=== PATIENT | female | born 2000 | race Caucasian/White ===

== ENCOUNTER 2020-07-09 14:06 | Outpatient (CLI) | payer OTHER ==
[2020-07-09 14:27] VITALS: BP 128/56; PULSE 82; RESP 16; TEMP 96.9
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
== END 2020-07-09 15:00 | disposition home or self-care (01) ==
LOC: FBPOP 14:06
PROVIDERS: ATTEND Obstetrics & Gynecology
DX: O26.93 Pregnancy related conditions, unspecified, third trimester (principal); Z3A.30 30 weeks gestation of pregnancy
CPT/HCPCS: 59025; G0463; 99213

== ENCOUNTER 2020-09-04 05:46 | Inpatient (IN) | payer OTHER ==
[2020-09-04] MEDS ORDERED: METHYLERGONOVINE 0.2 MG/ML 1 ML AMP IM PRN (06:02)
[2020-09-04] MEDS ORDERED: TERBUTALINE 1 MG/ML VIAL SQ PRN (06:02)
[2020-09-04] MEDS ORDERED: CARBOPROST TROMETHAMINE 250 MCG/ML 1 ML AMP IM PRN (06:02)
[2020-09-04] MEDS ORDERED: OXYTOCIN 10 UNIT/ML 1 ML VIAL IM PRN (06:02)
[2020-09-04] MEDS ORDERED: LIDOCAINE 0.5% (PF) 5 MG/ML (50 ML SDV) SQ PRN (06:02)
[2020-09-04] MEDS ORDERED: OXYTOCIN 30 UNITS/500 ML NS 30 UNIT in SALINE 1 500ML.BAG IV SCH (06:15)
[2020-09-04 06:16] LABS: Basophils # (A) 0.1 k/uL (0-0.2); Basophils % (A) 1 %; Eosinophils # (A) 0.7 k/uL (0-0.7); Eosinophils % (A) 5 %; HCT 39.6 % (34.0-46.0); Lymphocytes # (A) 3.9 k/uL (1.0-4.8); Lymphocytes % (A) 26 %; MCH 33.2 pg (25.0-35.0); MCHC 35.3 g/dL (31.0-37.0); MCV 94.2 fL (80.0-100.0); Mean Platelet Volume 7.5; Monocytes # (A) 0.6 k/uL (0-1.0); Monocytes % (A) 4 %; Neutrophils # (A) 9.5 k/uL (1.3-7.7); Neutrophils % (A) 64 %; Platelet Count 177 k/uL (150-450); RDW 12.4 % (11.5-15.5)
[2020-09-04] MEDS: LACTATED RINGERS 1,000 ML IV SCH ×3 (07:24→16:30)
--- NOTE | 2020-09-04 07:28 | P.HPOB ---
History of Present Illness H&P Date: 09/04/20 Chief Complaint: Here for elective induction of labor This is a 20-year-old white female 2 para 1001 EDC 09/11/2020 at 39 weeks gestation. Patient presents today for induction of labor with favorable multiparous cervix. Fetus is been active throughout the . She admits to mild irregular uterine contractions. She denies fluid leakage or vaginal bleeding. Past medical history is essentially unremarkable. Past surgical history appendectomy. Current medications vitamins daily, baby aspirin daily. ALLERGIES none known. Social history patient is single, father of the baby is involved. She is never been a tobacco smoker. She denies alcohol or drug use. Family history significant for alcoholism and cardiac disease. history rubella status nonimmune. Group B strep cultures negative. Blood type A+, VDRL testing, urine culture, hepatitis B surface antigen, HIV testing, Pap smear, gonorrhea and chlamydia cultures all negative. One-hour Glucola 95. On exam patient is 5 foot 5 inches, 224 pounds, blood pressure 121/89, pulse 98, patient is afebrile. The general physical exam is within normal limits. The cervix is 3 cm dilated, 70% effaced, -2 station, vertex presentation. Artificial amniorrhexis reveals clear fluid. heart rate is in the 140s with accelerations, consistent with reactive NST. Impression: 39 week intrauterine , here for elective induction of labor. All signs reassuring. Plan: Begin oxytocin augmentation, and titrated per hospital protocol. Continue close maternal and surveillance. Anticipate normal spontaneous vaginal delivery. Analgesic options reviewed with the patient in detail. Review of Systems Constitutional: Reports as per HPI Past Medical History Past Medical History: No Reported History History of Any Multi-Drug Resistant Organisms: None Reported Past Surgical History: Appendectomy Past Anesthesia/Blood Transfusion Reactions: No Reported Reaction Past Psychological History: No Psychological Hx Reported Smoking Status: Never smoker Past Alcohol Use History: None Reported Past Drug Use History: None Reported - Past Family History Mother Family Medical History: No Reported History Medications and Allergies Home Medications Medication Instructions Recorded Confirmed Type Aspirin [Adult Low Dose Aspirin EC] 81 mg PO DAILY 09/04/20 09/04/20 History Pnv No.95/Ferrous Fum/Folic AC 1 tablet PO DAILY 09/04/20 09/04/20 History [ Multivitamin Tablet] Allergies Allergy/AdvReac Type Severity Reaction Status Date / Time No Known Allergies Allergy Verified 09/04/20 06:01 Exam Vital Signs Temp Pulse Resp BP Pulse Ox 09/04/20 05:59 97.0 F L 98 16 121/89 96 Intake and Output 09/03/20 09/04/20 09/04/20 22:59 06:59 14:59 Other: # Voids 1 Weight 101.605 kg See dictation under HPI, please Results Result Diagrams: 09/04/20 06:00 Abnormal Lab Results - Last 24 Hours (Table) 09/04/20 Range/Units 06:00 WBC 15.0 H (3.8-10.6) k/uL Neutrophils # 9.5 H (1.3-7.7) k/uL Assessment and Plan Assessment: 39 week intrauterine , favorable multiparous cervix. Here for elective induction of labor. All signs reassuring. Plan: Continue close maternal and surveillance. Oxytocin per hospital protocol. Analgesic options reviewed. Anticipate normal spontaneous vaginal delivery. Time with Patient: Less than 30
[2020-09-04] MEDS ORDERED: ROPIVACAINE 5MG/ML 20ML VIAL ONE (09:15)
[2020-09-04] MEDS ORDERED: fentaNYL (PF) 50 MCG/ML 5 ML AMP ONE (09:15)
[2020-09-04] MEDS ORDERED: SODIUM CHLORIDE 0.9% 100 ML BAG ONE (09:15)
[2020-09-04] MEDS ORDERED: ROPIVACAINE 100 MG, fentaNYL (PF) 200 MCG in SODIUM CHLORIDE 0.9% 76 ML EPIDURAL ONE (12:23)
[2020-09-04] MEDS: OXYTOCIN 20 UNITS/1000 ML NS 1,000 ML IV SCH ×2 (12:50→17:19)
[2020-09-04] MEDS ORDERED: diphenhydrAMINE 50 MG/ML 1 ML VIAL IVP PRN ×2 (13:03)
[2020-09-04] MEDS ORDERED: HYDROCORTISONE 2.5% RECTAL CREAM 30 GM TUBE RECTAL PRN (13:03)
[2020-09-04] MEDS ORDERED: LANOLIN CREAM 5 GM TUBE TOPICAL PRN (13:03)
[2020-09-04] MEDS ORDERED: diphenhydrAMINE 50 MG CAP PO PRN (13:03)
[2020-09-04] MEDS ORDERED: diphenhydrAMINE 25 MG CAP PO PRN (13:03)
[2020-09-04] MEDS ORDERED: ACETAMINOPHEN TAB 325 MG TAB PO PRN (13:03)
[2020-09-04] MEDS ORDERED: SIMETHICONE 80 MG CHEWABLE PO PRN (13:03)
[2020-09-04] MEDS ORDERED: ZOLPIDEM 5 MG TAB PO PRN (13:03)
[2020-09-04] MEDS ORDERED: BENZOCAINE/MENTHOL SPRAY 1 GM/SPRAY AEROSOL TOPICAL PRN (13:03)
--- NOTE | 2020-09-04 13:03 | P.PROBDLV ---
Vaginal Delivery Note - . Vaginal Delivery Note: This is a 20-year-old white female 2 para 1001 EDC 09/11/2020 at 39 weeks gestation. Patient presented for induction with favorable multiparous cervix. unremarkable, group B strep cultures negative, blood type B positive, rubella status nonimmune. Please see dictated history and physical for details. Artificial amniorrhexis revealed clear fluid. Oxytocin was started and titrated per hospital protocol. Epidural was placed per her request with excellent analgesic relief. heart tones were reassuring throughout the first and second stages of labor. Patient became completely dilated at 1231 hours and began the second stage of labor at that time. Perineal body was prepped and draped in usual sterile fashion. With excellent maternal expulsive efforts the head delivered occiput anterior and restituted accordingly. The was no nuchal cord noted. The right or anterior shoulder was gently delivered from underneath the pubic symphysis at which time the oropharynx, nasopharynx, and external nares were all bulb suctioned on the perin eal body. Patient was officially delivered of a liveborn female at 1243 hours. Umbilical cord was doubly clamped and ligated, she was handed to waiting nurses for evaluation where scores of 9 and 9 at one and 5 minutes respectively were given. The placenta delivered spontaneously, it was inspected and noted to be intact with trivascular cord at 1250 hours. Perineal body was then redraped. Careful inspection of the cervix, vagina, perineum, periurethral, and perirectal areas revealed no lacerations and no defects. Uterus is massaged, firm and midline and symmetric. Total estimated blood loss 200 mL's. All sponge needle and enhancement counts are correct at the end of the procedure. Patient and her family are allowed to begin the bonding experience in the LDR.
[2020-09-04] MEDS: IBUPROFEN 600 MG TAB PO PRN (18:51)
[2020-09-04] MEDS: SENNOSIDES-DOCUSATE SODIUM 1 EACH TAB PO SCH (19:43)
[2020-09-04] MEDS ORDERED: MEASLES-MUMPS-RUBELLA VACC/PF 12,500 UNIT/0.5 ML VIAL SQ ONE (21:19)
[2020-09-05 06:14] LABS: Basophils % (A) 0 %; Eosinophils # (A) 0.4 k/uL (0-0.7); Eosinophils % (A) 3 %; HCT 28.9 % (34.0-46.0); Lymphocytes # (A) 3.3 k/uL (1.0-4.8); Lymphocytes % (A) 25 %; MCH 34.4 pg (25.0-35.0); MCV 95.7 fL (80.0-100.0); Mean Platelet Volume 7.4; Monocytes # (A) 0.7 k/uL (0-1.0); Monocytes % (A) 5 %; Neutrophils # (A) 8.3 k/uL (1.3-7.7); Neutrophils % (A) 64 %; Platelet Count 137 k/uL (150-450); RBC 3.02 m/uL (3.80-5.40); RDW 12.8 % (11.5-15.5); WBC 12.9 k/uL (3.8-10.6)
[2020-09-05 06:15] LABS: HGB 10.4 gm/dL (11.4-16.0)
[2020-09-05] MEDS: SENNOSIDES-DOCUSATE SODIUM 1 EACH TAB PO SCH ×2 (07:27→19:52)
[2020-09-05] MEDS: IBUPROFEN 600 MG TAB PO PRN ×2 (07:27→19:51)
--- NOTE | 2020-09-05 08:02 | P.DS ---
Providers Date of admission: 09/04/20 05:46 Expected date of discharge: 09/05/20 Attending physician: Debbie Hurley Primary care physician: Stated None Hospital Course: This is a 20-year-old white female 2 para 1001 EDC 09/11/2020 at 39 weeks gestation. Patient presented for induction with favorable multiparous cervix at term. remarkable for rubella status nonimmune, blood type A+, group B strep cultures negative. Please see dictated history and physical for details. Artificial amniorrhexis revealed clear fluid. Epidural was placed per her request. Patient went on to deliver vaginally a liveborn female infant with scores of 9 and 9 at one and 5 minutes respectively. Infant weighed 3515 g or 7 lbs. 12 oz. Estimated blood loss 200 mL at the time of delivery. No perineal lacerations were encountered. Please see dictated delivery note for details. Immediately rather large blood clots were passed vaginally. For this reason Methergine was given IM 1 with excellent results. Bleeding resolved to normal quantity. The remainder of her care was unremarkable. This morning patient is voiding, ambulating, passing flatus without difficulty. Repeat hemoglobin this morning 10.4. Vital signs remain normal. Patient is asymptomatic. She is judged to be in excellent condition for discharge home. She will follow-up with me in the office in 6 weeks. We have briefly reviewed options for contraception. She is reminded no intercourse, tampons or douching. She will use [id number] Advil or Aleve, or Motrin as needed for pain. She will call with any fevers shakes or chills foul smelling or copious lochia, with the passage of large blood clots, or indeed with any difficulties or complaints. Patient Condition at Discharge: Good Plan - Discharge Summary Discharge Rx Participant: No New Discharge Prescriptions: No Action Pnv No.95/Ferrous Fum/Folic AC [ Multivitamin Tablet] 1 tablet PO DAILY Aspirin [Adult Low Dose Aspirin EC] 81 mg PO DAILY Discharge Medication List Aspirin [Adult Low Dose Aspirin EC] 81 mg PO DAILY 09/04/20 [History] Pnv No.95/Ferrous Fum/Folic AC [ Multivitamin Tablet] 1 tablet PO DAILY 09/04/20 [History] Follow up Appointment(s)/Referral(s): Debbie Hurley MD [STAFF PHYSICIAN] - 6 Weeks Discharge Disposition: HOME SELF-CARE
[2020-09-06] MEDS: IBUPROFEN 600 MG TAB PO PRN (04:56)
[2020-09-06 11:04] VITALS: BP 117/75; PULSE 77; RESP 14; TEMP 98.3
[2020-09-06] MEDS: SENNOSIDES-DOCUSATE SODIUM 1 EACH TAB PO SCH (11:21)
== END 2020-09-06 15:17 | disposition home or self-care (01) | DRG 807 ==
LOC: 4FBP 05:46
PROVIDERS: ADMIT Obstetrics & Gynecology; ATTEND Obstetrics & Gynecology
PROC: 10E0XZZ Delivery of Products of Conception, External Approach (ICD-10-PCS; principal; 2020-09-04)
PROC: 10907ZC Drainage of Amniotic Fluid, Therapeutic from Products of Conception, Via Natural or Artificial Opening (ICD-10-PCS; 2020-09-04)
PROC: 3E033VJ Introduction of Other Hormone into Peripheral Vein, Percutaneous Approach (ICD-10-PCS; 2020-09-04)
PROC: 3E0R3BZ Introduction of Anesthetic Agent into Spinal Canal, Percutaneous Approach (ICD-10-PCS; 2020-09-04)
DX: O80 Encounter for full-term uncomplicated delivery (principal); Z37.0 Single live birth; Z3A.39 39 weeks gestation of pregnancy; Z90.49 Acquired absence of other specified parts of digestive tract; Z79.82 Long term (current) use of aspirin; Z79.899 Other long term (current) drug therapy
CPT/HCPCS: 85025; 86850; 86900; 86901; 90707

== ENCOUNTER 2021-04-24 10:20 | Emergency (ER) | payer OTHER ==
[2021-04-24 10:29] VITALS: RESP 20; TEMP 98.3
[2021-04-24 11:13] LABS: Basophils % (A) 1 %; Eosinophils # (A) 0.3 k/uL (0-0.7); Eosinophils % (A) 4 %; HGB 13.8 gm/dL (11.4-16.0); Lymphocytes # (A) 2.5 k/uL (1.0-4.8); Lymphocytes % (A) 40 %; MCH 31.4 pg (25.0-35.0); MCHC 33.7 g/dL (31.0-37.0); MCV 93.3 fL (80.0-100.0); Mean Platelet Volume 6.4; Monocytes # (A) 0.3 k/uL (0-1.0); Monocytes % (A) 5 %; Neutrophils # (A) 2.9 k/uL (1.3-7.7); Neutrophils % (A) 47 %; Platelet Count 232 k/uL (150-450); RBC 4.39 m/uL (3.80-5.40); RDW 13.2 % (11.5-15.5); WBC 6.2 k/uL (3.8-10.6)
--- NOTE | 2021-04-24 11:14 | ED ---
Female Urogenital HPI - General Chief complaint: Vaginal Bleeding Stated complaint: Vaginal bleeding, 8 weeks Time Seen by Provider: 04/24/21 10:37 Source: patient Mode of arrival: ambulatory Limitations: no limitations - History of Present Illness Initial comments: Patient is a 21-year-old female presenting to the emergency Department with com plaints of vaginal spotting that started today while at work. Patient is approximately 8 weeks , , LATHE SCALPER OPERATOR is Dr. Hurley. Patient states she was at work, went to use the restroom and when she wiped she noticed some blood. She states she's been spotting for the past 2-3 hours. Nothing heavy, she is not needing to her pad. She denies any abdominal pain, some mild nausea which is normal for her. No vomiting, no diarrhea, no recent fevers or chills. Patient denies any chest pain or shortness of breath. She has no further complaints at this time. - Related Data Home Medications Medication Instructions Recorded Confirmed Aspirin [Adult Low Dose Aspirin EC] 81 mg PO DAILY 09/04/20 09/04/20 Pnv No.95/Ferrous Fum/Folic AC 1 tablet PO DAILY 09/04/20 09/04/20 [ Multivitamin Tablet] Allergies Allergy/AdvReac Type Severity Reaction Status Date / Time No Known Allergies Allergy Verified 04/24/21 10:29 Review of Systems ROS Statement: Those systems with pertinent positive or pertinent negative responses have been documented in the HPI. ROS Other: All systems not noted in ROS Statement are negative. Past Medical History Past Medical History: No Reported History History of Any Multi-Drug Resistant Organisms: None Reported Past Surgical History: Appendectomy Past Anesthesia/Blood Transfusion Reactions: No Reported Reaction Past Psychological History: No Psychological Hx Reported Smoking Status: Never smoker Past Alcohol Use History: None Reported Past Drug Use History: None Reported - Past Family History Mother Family Medical History: No Reported History General Exam - General Exam Comments Initial Comments: GENERAL: Patient is well-developed and well-nourished. Patient is nontoxic and in no acute distress. HEAD: Atraumatic, normocephalic. EYES: Pupils equal round and reactive to light, extraocular movements intact, sclera anicteric, conjunctiva are normal. Eyelids were unremarkable. ENT: Nares patent, oropharynx clear without exudates. Moist mucous membranes. NECK: Normal range of motion, supple without lymphadenopathy or JVD. LUNGS: Unlabored respirations. Breath sounds clear to auscultation bilaterally and equal. No wheezes rales or rhonchi. HEART: Regular rate and rhythm without murmurs, rubs or gallops. ABDOMEN: Soft, nontender, normoactive bowel sounds. No guarding, no rebound. No masses appreciated. : Deferred MUSCULOSKELETAL: Normal extremities with adequate strength and normal range of motion, no pitting or edema. No clubbing or cyanosis. NEUROLOGICAL: Patient is alert and oriented x 3. SKIN: Warm, Dry, normal turgor, no rashes or lesions noted. Limitations: no limitations Course Vital Signs 04/24/21 04/24/21 10:27 12:30 Temperature 98.3 F Pulse Rate 88 76 Respiratory 20 20 Rate Blood Pressure 123/76 103/60 O2 Sat by Pulse 99 100 Oximetry Medical Decision Making - Medical Decision Making Patient is a 21-year-old female, currently 8 weeks , presenting for spotting since this morning. She is , LATHE SCALPER OPERATOR is Dr. Hurley. She is having no abdominal pain, no vomiting. Vital signs are stable. Labs are all within normal limits, beta hCG is around 6900. Blood type is A+. Ultrasound today showing no heart tones, findings consistent with demise. I did discuss these findings with the patient. She did have an ultrasound last week at her LATHE SCALPER OPERATOR's office for date confirmation and she did have heart tones then. I recommended following up with her LATHE SCALPER OPERATOR. I will give her a lab slip to recheck hCG levels and 48 hours. She stable for discharge. Return parameters were discussed with her and she verbalized understanding. Case discussed with Dr. Lord. - Lab Data Result diagrams: 04/24/21 11:00 04/24/21 11:00 Lab Results 04/24/21 04/24/21 04/24/21 Range/Units 10:50 11:00 11:00 WBC 6.2 (3.8-10.6) k/uL RBC 4.39 (3.80-5.40) m/uL Hgb 13.8 (11.4-16.0) gm/dL Hct 41.0 (34.0-46.0) % MCV 93.3 (80.0-100.0) fL MCH 31.4 (25.0-35.0) pg MCHC 33.7 (31.0-37.0) g/dL RDW 13.2 (11.5-15.5) % Plt Count 232 (150-450) k/uL MPV 6.4 Neutrophils % 47 % Lymphocytes % 40 % Monocytes % 5 % Eosinophils % 4 % Basophils % 1 % Neutrophils # 2.9 (1.3-7.7) k/uL Lymphocytes # 2.5 (1.0-4.8) k/uL Monocytes # 0.3 (0-1.0) k/uL Eosinophils # 0.3 (0-0.7) k/uL Basophils # 0.0 (0-0.2) k/uL Sodium (137-145) mmol/L Potassium (3.5-5.1) mmol/L Chloride (98-107) mmol/L Carbon Dioxide (22-30) mmol/L Anion Gap mmol/L BUN (7-17) mg/dL Creatinine (0.52-1.04) mg/dL Est GFR (CKD-EPI)AfAm (>60 ml/min/1.73 sqM) Est GFR (CKD-EPI)NonAf (>60 ml/min/1.73 sqM) Glucose (74-99) mg/dL Calcium (8.4-10.2) mg/dL Total Bilirubin (0.2-1.3) mg/dL AST (14-36) U/L ALT (4-34) U/L Alkaline Phosphatase (38-126) U/L Total Protein (6.3-8.2) g/dL Albumin (3.5-5.0) g/dL HCG, Quant mIU/mL Urine Color Light Yellow Urine Appearance Clear (Clear) Urine pH 7.0 (5.0-8.0) Ur Specific [place] 1.004 (1.001-1.035) Urine Protein Negative (Negative) Urine Glucose (UA) Negative (Negative) Urine Ketones Negative (Negative) Urine Blood Large H (Negative) Urine Nitrite Negative (Negative) Urine Bilirubin Negative (Negative) Urine Urobilinogen <2.0 (<2.0) mg/dL Ur Leukocyte Esterase Small H (Negative) Urine RBC 1 (0-5) /hpf Urine WBC 2 (0-5) /hpf Ur Squamous Epith Cells 1 (0-4) /hpf Blood Type A Positive Blood Type Recheck A Pos Bld Type Recheck Status No 04/24/21 Range/Units 11:00 WBC (3.8-10.6) k/uL RBC (3.80-5.40) m/uL Hgb (11.4-16.0) gm/dL Hct (34.0-46.0) % MCV (80.0-100.0) fL MCH (25.0-35.0) pg MCHC (31.0-37.0) g/dL RDW (11.5-15.5) % Plt Count (150-450) k/uL MPV Neutrophils % % Lymphocytes % % Monocytes % % Eosinophils % % Basophils % % Neutrophils # (1.3-7.7) k/uL Lymphocytes # (1.0-4.8) k/uL Monocytes # (0-1.0) k/uL Eosinophils # (0-0.7) k/uL Basophils # (0-0.2) k/uL Sodium 139 (137-145) mmol/L Potassium 3.8 (3.5-5.1) mmol/L Chloride 104 (98-107) mmol/L Carbon Dioxide 26 (22-30) mmol/L Anion Gap 9 mmol/L BUN 9 (7-17) mg/dL Creatinine 0.53 (0.52-1.04) mg/dL Est GFR (CKD-EPI)AfAm >90 (>60 ml/min/1.73 sqM) Est GFR (CKD-EPI)NonAf >90 (>60 ml/min/1.73 sqM) Glucose 93 (74-99) mg/dL Calcium 9.8 (8.4-10.2) mg/dL Total Bilirubin 0.3 (0.2-1.3) mg/dL AST 30 (14-36) U/L ALT 22 (4-34) U/L Alkaline Phosphatase 103 (38-126) U/L Total Protein 7.3 (6.3-8.2) g/dL Albumin 4.5 (3.5-5.0) g/dL HCG, Quant 6923.3 mIU/mL Urine Color Urine Appearance (Clear) Urine pH (5.0-8.0) Ur Specific [place] (1.001-1.035) Urine Protein (Negative) Urine Glucose (UA) (Negative) Urine Ketones (Negative) Urine Blood (Negative) Urine Nitrite (Negative) Urine Bilirubin (Negative) Urine Urobilinogen (<2.0) mg/dL Ur Leukocyte Esterase (Negative) Urine RBC (0-5) /hpf Urine WBC (0-5) /hpf Ur Squamous Epith Cells (0-4) /hpf Blood Type Blood Type Recheck Bld Type Recheck Status Disposition Clinical Impression: Threatened , demise Disposition: HOME SELF-CARE Condition: Stable Instructions (If sedation given, give patient instructions): Threatened Miscarriage (ED) Additional Instructions: Please return to the Emergency Department if symptoms worsen or any other concerns. Please follow up with your LATHE SCALPER OPERATOR as discussed. Recheck beta hCG levels in 48 hours. Is patient prescribed a controlled substance at d/c from ED?: No Referrals: Thanh Charles MD [Primary Care Provider] - 1-2 days Debbie Hurley MD [Family Provider] - 1-2 days Time of Disposition: 13:09
[2021-04-24 11:20] LABS: Appearance,Urine Clear (Clear); Bilirubin,Urine Negative (Negative); Blood,Urine Large (Negative); Color,Urine Light Yellow; Glucose,Urine (UA) Negative (Negative); Ketones,Urine Negative (Negative); Leukocyte Esterase,Urine Small (Negative); Nitrite,Urine Negative (Negative); Protein,Urine Negative (Negative); RBC,Urine 1 /hpf (0-5); Specific Gravity,Urine 1.004 (1.001-1.035); Squamous Epithelial Cell,Urine 1 /hpf (0-4); Urobilinogen,Urine <2.0 mg/dL (<2.0); WBC,Urine 2 /hpf (0-5)
[2021-04-24 11:22] LABS: ALT 22 U/L (4-34); AST 30 U/L (14-36); African American GFR (CKD) >90 (>60 ml/min/1.73 sqM); Albumin 4.5 g/dL (3.5-5.0); Alkaline Phosphatase 103 U/L (38-126); Anion Gap 9 mmol/L; Blood Urea Nitrogen 9 mg/dL (7-17); Calcium 9.8 mg/dL (8.4-10.2); Carbon Dioxide 26 mmol/L (22-30); Chloride 104 mmol/L (98-107); Glucose 93 mg/dL (74-99); Non-African American GFR(CKD) >90 (>60 ml/min/1.73 sqM); Potassium 3.8 mmol/L (3.5-5.1); Sodium 139 mmol/L (137-145); Total Bilirubin 0.3 mg/dL (0.2-1.3); Total Protein 7.3 g/dL (6.3-8.2)
[2021-04-24 11:39] LABS: HCG,Quantitative Serum 6923.3 mIU/mL
[2021-04-24 12:34] VITALS: BP 103/60; PULSE 76
--- NOTE | 2021-04-24 12:43 | US ---
EXAMINATION TYPE: Transabdominal DATE OF EXAM: 04/24/2021 11:53 AM COMPARISON: NONE CLINICAL HISTORY: spotting, 8wks. spotting EXAM PERFORMED: Transvaginal (TV) and Transabdominal (TA) EXAM MEASUREMENTS: GESTATIONAL AGE / DATING Physician Established: (7 weeks/5 days) EDC: 12/06/2021 Dates by LMP: (7 weeks/5 days) EDC: 12/06/2021 Dates by First Scan: No previous this is first scan MATERNAL ANATOMY Uterus: 7.8 x 3.5 x 5.9 cm Right Ovary: obscured by bowel gas. Left Ovary: 3.7 x 2.0 x 1.7 cm Post CDS / Adnexa: wnl Presence of free fluid: no Presence of corpus luteal cyst: no Presence of subchorionic bleed: no GESTATION / SURVEY CRL: .98 cm (7 weeks/0 days) IUP: Demise Beta HcG (if available): Not available at this time No heart tones seen. IMPRESSION: Findings consistent with demise
== END 2021-04-24 13:25 | disposition home or self-care (01) ==
LOC: EC 10:20
DX: O20.0 Threatened abortion (principal); Z79.82 Long term (current) use of aspirin; Z3A.08 8 weeks gestation of pregnancy
CPT/HCPCS: 36415; 76801; 76817; 80053; 81001; 84702; 85025; 86900; 86901; 99284

== ENCOUNTER → 2021-04-27 | Outpatient (CLI) | payer OTHER | END | disposition home or self-care (01) | LOC: LABWHC1 15:54 | PROVIDERS: ATTEND Specialist/Technologist Athletic Trainer | DX: O20.0 Threatened abortion (principal); Z3A.00 Weeks of gestation of pregnancy not specified | CPT/HCPCS: 36415; 84702 ==

== ENCOUNTER → 2021-05-05 | Outpatient (CLI) | payer OTHER | END | disposition home or self-care (01) | LOC: LABWHC1 15:03 | PROVIDERS: ATTEND Obstetrics & Gynecology | DX: O03.9 Complete or unspecified spontaneous abortion without complication (principal); Z3A.00 Weeks of gestation of pregnancy not specified | CPT/HCPCS: 36415; 84702 ==

== ENCOUNTER → 2021-05-12 | Outpatient (CLI) | payer OTHER | END | disposition home or self-care (01) | LOC: LABWHC1 16:09 | PROVIDERS: ATTEND Obstetrics & Gynecology | DX: O02.1 Missed abortion (principal); Z3A.00 Weeks of gestation of pregnancy not specified | CPT/HCPCS: 36415; 84702 ==

== ENCOUNTER 2021-08-20 06:34 | Emergency (ER) | payer OTHER ==
[2021-08-20 06:39] VITALS: TEMP 98.6
--- NOTE | 2021-08-20 07:00 | ED ---
Female Urogenital HPI - General Chief complaint: Vaginal Bleeding Stated complaint: Spotting, 6wks preg Time Seen by Provider: 08/20/21 06:38 Source: patient, family, RN notes reviewed Mode of arrival: ambulatory Limitations: no limitations - History of Present Illness Initial comments: This a 21-year-old female sent emergency from chief complaint of spotting early . Patient is A1 currently 16 weeks . Patient states she found out 3 weeks ago she was she is scheduled plan with her PAYMENT ANALYST Dr. Hurley. Patient has a positive blood type. Patient denies any pain, cramping, dysuria, urinary frequency. No fevers or chills no other associated complaints. - Related Data Home Medications Medication Instructions Recorded Confirmed Pnv No.95/Ferrous Fum/Folic AC 1 tab PO HS 09/04/20 08/20/21 [ Multivitamin Tablet] Previous Rx's Medication Instructions Recorded Cephalexin [Keflex] 500 mg PO Q8HR #21 cap 08/20/21 Allergies Allergy/AdvReac Type Severity Reaction Status Date / Time No Known Allergies Allergy Verified 08/20/21 08:24 Review of Systems ROS Statement: Those systems with pertinent positive or pertinent negative responses have been documented in the HPI. ROS Other: All systems not noted in ROS Statement are negative. Past Medical History Past Medical History: No Reported History History of Any Multi-Drug Resistant Organisms: None Reported Past Surgical History: Appendectomy Past Anesthesia/Blood Transfusion Reactions: No Reported Reaction Past Psychological History: No Psychological Hx Reported Smoking Status: Never smoker Past Alcohol Use History: None Reported Past Drug Use History: None Reported - Past Family History Mother Family Medical History: No Reported History General Exam Limitations: no limitations General appearance: alert, in no apparent distress Head exam: Present: atraumatic, normocephalic, normal inspection Eye exam: Present: normal appearance, PERRL, EOMI. Absent: scleral icterus, conjunctival injection, periorbital swelling ENT exam: Present: normal exam, mucous membranes moist Neck exam: Present: normal inspection, full ROM. Absent: tenderness, meningismus, lymphadenopathy Respiratory exam: Present: normal lung sounds bilaterally. Absent: respiratory distress, wheezes, rales, rhonchi, stridor Cardiovascular Exam: Present: regular rate, normal rhythm, normal heart sounds. Absent: systolic murmur, diastolic murmur, rubs, gallop, clicks GI/Abdominal exam: Present: soft, normal bowel sounds. Absent: distended, tenderness, guarding, rebound, rigid Course Vital Signs 08/20/21 06:35 Temperature 98.6 F Pulse Rate 86 Respiratory 22 Rate Blood Pressure 118/74 O2 Sat by Pulse 100 Oximetry Medical Decision Making - Medical Decision Making Patient presented for spotting early . Patient is a positive blood type does not require RhoGAM. Patient's beta Quant is just over 600. Ultrasound was unremarkable patient will be discharged in stable condition she would she for urinary tract infection return parameters discussed. - Lab Data Lab Results 08/20/21 08/20/21 Range/Units 07:09 07:09 HCG, Quant 632.1 mIU/mL Urine Color Light Yellow Urine Appearance Cloudy H (Clear) Urine pH 6.0 (5.0-8.0) Ur Specific [place] 1.007 (1.001-1.035) Urine Protein Negative (Negative) Urine Glucose (UA) Negative (Negative) Urine Ketones Negative (Negative) Urine Blood Large H (Negative) Urine Nitrite Negative (Negative) Urine Bilirubin Negative (Negative) Urine Urobilinogen <2.0 (<2.0) mg/dL Ur Leukocyte Esterase Large H (Negative) Urine RBC 19 H (0-5) /hpf Urine WBC 14 H (0-5) /hpf Ur Squamous Epith Cells 3 (0-4) /hpf Disposition Clinical Impression: Threatened miscarriage in early , UTI (urinary tract infection) Disposition: HOME SELF-CARE Condition: Stable Instructions (If sedation given, give patient instructions): Urinary Tract Infection in Women (ED) Additional Instructions: Please return to the Emergency Department if symptoms worsen or any other concerns. Prescriptions: Cephalexin [Keflex] 500 mg PO Q8HR #21 cap Is patient prescribed a controlled substance at d/c from ED?: No Referrals: Thanh Charles MD [Primary Care Provider] - 1-2 days Time of Disposition: 09:34
[2021-08-20 07:56] LABS: Appearance,Urine Cloudy (Clear); Bilirubin,Urine Negative (Negative); Blood,Urine Large (Negative); Color,Urine Light Yellow; Glucose,Urine (UA) Negative (Negative); Ketones,Urine Negative (Negative); Leukocyte Esterase,Urine Large (Negative); Nitrite,Urine Negative (Negative); Protein,Urine Negative (Negative); RBC,Urine 19 /hpf (0-5); Specific Gravity,Urine 1.007 (1.001-1.035); Squamous Epithelial Cell,Urine 3 /hpf (0-4); Urobilinogen,Urine <2.0 mg/dL (<2.0); WBC,Urine 14 /hpf (0-5)
--- NOTE | 2021-08-20 09:31 | US ---
EXAMINATION TYPE: Transabdominal DATE OF EXAM: 08/20/2021 8:35 AM COMPARISON: 04/24/2021 CLINICAL HISTORY: bleeding. Vaginal spotting for the past day G 4 P 2 EXAM PERFORMED: Transvaginal (TV) EXAM MEASUREMENTS: GESTATIONAL AGE / DATING Dates by LMP: 07/07/21 (6 weeks/2 days) EDC: 04/13/21 Dates by Current Scan for: Unable to date by today's study MATERNAL ANATOMY Uterus: 7.9 x 5.3 x 4.0 cm Right Ovary: 2.6 x 2.2 x 2.2cm Left Ovary: 2.6 x 1.8 x 1.8 Post CDS / Adnexa: Wnl Presence of free fluid: Small amount of fluid seen in posterior cul de sac Presence of corpus luteal cyst: Rt corpus luteal cyst 1.5 x 1.2 0.8 cm Presence of subchorionic bleed: no GESTATION / SURVEY IUP: No IUP seen at this time, anechoic area seen in endo, possible early Date of LMP: 07/07/21 Beta HcG (if available): 632.1MIU/mL IMPRESSION: There is a small anechoic area seen in the endometrium with no definite pole. Small amount of f ree fluid in the pelvis. Differential diagnosis includes normal too early to detect, missed , or ectopic . Correlate clinically.
[2021-08-20 09:50] VITALS: BP 118/84; PULSE 84; RESP 18
== END 2021-08-20 09:56 | disposition home or self-care (01) ==
LOC: EC 06:34
DX: O20.0 Threatened abortion (principal); O23.41 Unspecified infection of urinary tract in pregnancy, first trimester; N39.0 Urinary tract infection, site not specified; Z3A.00 Weeks of gestation of pregnancy not specified; Z90.49 Acquired absence of other specified parts of digestive tract
CPT/HCPCS: 36415; 76801; 76817; 81001; 84702; 87086; 99284

== ENCOUNTER → 2021-08-22 | Outpatient (CLI) | payer OTHER | END | disposition home or self-care (01) | LOC: LABWHC1 10:28 | PROVIDERS: ATTEND Physician Assistant | DX: O20.0 Threatened abortion (principal); Z3A.00 Weeks of gestation of pregnancy not specified | CPT/HCPCS: 36415; 84702 ==

== ENCOUNTER → 2021-09-04 | Outpatient (CLI) | payer OTHER | END | disposition home or self-care (01) | LOC: LABWHC1 10:18 | PROVIDERS: ATTEND Obstetrics & Gynecology | DX: O02.1 Missed abortion (principal); Z3A.00 Weeks of gestation of pregnancy not specified | CPT/HCPCS: 36415; 84702 ==

== ENCOUNTER 2023-09-15 05:55 | Inpatient (IN) | payer MEDICARE, OTHER ==
[2023-09-15] MEDS ORDERED: METHYLERGONOVINE 0.2 MG/ML 1 ML AMP IM PRN (06:11)
[2023-09-15] MEDS ORDERED: miSOPROStoL 200 MCG TAB PO PRN (06:11)
[2023-09-15] MEDS ORDERED: TERBUTALINE 1 MG/ML VIAL SQ PRN (06:11)
[2023-09-15] MEDS ORDERED: OXYTOCIN 10 UNIT/ML 1 ML VIAL IM PRN (06:11)
[2023-09-15] MEDS ORDERED: CARBOPROST TROMETHAMINE 250 MCG/ML 1 ML AMP IM PRN (06:11)
[2023-09-15] MEDS ORDERED: LIDOCAINE 0.5% (PF) 5 MG/ML (50 ML SDV) SQ PRN (06:11)
[2023-09-15] MEDS ORDERED: TRANEXAMIC 1,000 MG/100ML-NACL 1,000 MG in EMPTY BAG 1 BAG IV PRN (06:11)
[2023-09-15] MEDS ORDERED: OXYTOCIN 30 UNITS/500 ML NS 30 UNIT in SALINE 1 500ML.BAG IV SCH ×2 (06:15→14:30)
[2023-09-15] MEDS: LACTATED RINGERS 1,000 ML IV SCH ×2 (06:36→09:55)
[2023-09-15 06:45] LABS: Basophils % (A) 0 %; Eosinophils # (A) 0.4 k/uL (0-0.7); Eosinophils % (A) 4 %; HCT 37.3 % (34.0-46.0); Lymphocytes # (A) 2.4 k/uL (1.0-4.8); Lymphocytes % (A) 24 %; MCH 32.8 pg (25.0-35.0); MCHC 34.8 g/dL (31.0-37.0); MCV 94.2 fL (80.0-100.0); Mean Platelet Volume 7.5; Monocytes # (A) 0.5 k/uL (0-1.0); Monocytes % (A) 5 %; Neutrophils # (A) 6.6 k/uL (1.3-7.7); Neutrophils % (A) 66 %; Platelet Count 177 k/uL (150-450); RBC 3.96 m/uL (3.80-5.40); RDW 13.1 % (11.5-15.5); WBC 10.1 k/uL (3.8-10.6)
--- NOTE | 2023-09-15 09:21 | P.HPOB ---
History of Present Illness H&P Date: 09/15/23 Chief Complaint: 39-0/7 weeks, elective induction The patient is a 23-year-old 5 para 2021 admitted at 39-0/7 weeks by good dating parameters perches admitted for elective induction of labor with all signs reassuring, category 1 heart rate tracing. Her has been uncomplicated and group B strep status is negative. She has requested a tubal ligation which will likely be performed at roughly 6 weeks R to him unless section is required. Obstetrical history: 5 para 2021 cc statistics listed in history of present illness. EDC of 09/22/2023 was established by last menstrual period and confirmed by 8 week ultrasound. Laboratory workup demonstrates a blood type of A+ with a negative antibody screen. Rubella status is immune. The remainder of the laboratory workup was within normal limits. One hour Glucola at [facility] and in second trimester were both within normal limits. Group B strep status is negative. Gynecologic history: Unremarkable with no history of any infections to include STDs. Review of Systems Review of systems is confined to history of present illness. Past Medical History Past Medical History: No Reported History History of Any Multi-Drug Resistant Organisms: None Reported Past Surgical History: Appendectomy, Cholecystectomy Past Anesthesia/Blood Transfusion Reactions: No Reported Reaction Past Psychological History: No Psychological Hx Reported Smoking Status: Never smoker Past Alcohol Use History: None Reported Past Drug Use History: None Reported - Past Family History Mother Family Medical History: No Reported History Medications and Allergies Home Medications Medication Instructions Recorded Confirmed Type Pnv No.95/Ferrous Fum/Folic AC 1 tab PO HS 09/04/20 09/15/23 History [ Multivitamin Tablet] Aspirin 81 mg PO DAILY 09/15/23 09/15/23 History Allergies Allergy/AdvReac Type Severity Reaction Status Date / Time No Known Allergies Allergy Verified 09/15/23 06:09 Exam Intake and Output 09/14/23 09/15/23 09/15/23 22:59 06:59 14:59 Other: Weight 112.491 kg In general, this is a well-developed, moderately obese white female in no acute distress. Her heart has a regular rhythm and rate without murmur. Her lungs are clear to auscultation bilaterally in all moy. Her abdomen is gravid, nondistended, has normal active bowel sounds, soft, nontender, without any palpable masses aside from uterine fundus. Her extremities without any cyanosis, clubbing, or edema and are nontender to palpation bilaterally. Digital cervical examination demonstrates her cervix to be 3 cm dilated, 50% effaced, the vertex in presentation at -2 station. Artificial rupture of membranes is carried out demonstrating clear fluid. Results Result Diagrams: 09/15/23 06:30 Assessment and Plan (1) Term Current Visit: Yes Status: Acute Code(s): Z34.90 - ENCNTR FOR SUPRVSN OF NORMAL , UNSP, UNSP TRIMESTER SNOMED Code(s): 65642002 Plan: The patient is admitted for elective induction of labor. Risks and complica tions have been discussed and she has agreed to proceed. She will have close maternal and surveillance and expectant management will be practiced. She is a good candidate for either IV or epidural analgesia, whichever she may choose.
[2023-09-15] MEDS ORDERED: NALBUPHINE 10 MG/ML (10 ML MDV) IV PRN (09:22)
[2023-09-15] MEDS ORDERED: HYDROcodone/APAP 7.5-325MG 1 EACH TAB PO PRN (14:27)
[2023-09-15] MEDS ORDERED: SIMETHICONE 80 MG CHEWABLE PO PRN (14:27)
[2023-09-15] MEDS ORDERED: diphenhydrAMINE 25 MG CAP PO PRN (14:27)
[2023-09-15] MEDS ORDERED: ACETAMINOPHEN TAB 325 MG TAB PO PRN (14:27)
[2023-09-15] MEDS ORDERED: BENZOCAINE/MENTHOL SPRAY 1 GM/SPRAY AEROSOL TOPICAL PRN (14:27)
[2023-09-15] MEDS ORDERED: ZOLPIDEM 5 MG TAB PO PRN (14:27)
[2023-09-15] MEDS ORDERED: diphenhydrAMINE 50 MG CAP PO PRN (14:27)
[2023-09-15] MEDS ORDERED: diphenhydrAMINE 50 MG/ML 1 ML VIAL IVP PRN ×2 (14:27)
[2023-09-15] MEDS ORDERED: HYDROcodone/APAP 5-325MG 1 EACH TAB PO PRN (14:27)
[2023-09-15] MEDS ORDERED: HYDROCORTISONE 2.5% RECTAL CREAM 30 GM TUBE RECTAL PRN (14:27)
--- NOTE | 2023-09-15 14:32 | P.PROBDLV ---
Vaginal Delivery Note - . Vaginal Delivery Note: The patient is a 23-year-old 5 para 2021 admitted at 39-0/7 weeks by good dating parameters perches admitted for an elective induction with all signs reassuring. Her has been entirely uncomplicated and group B strep status is negative. On labor and delivery, there is a category 1 heart rate tracing. She had Pitocin augmentation started and underwent artificial rupture of membranes for clear fluid. She made progress to the active phase and had an epidural catheter placed for analgesia. She then progressed steadily through the active phase to complete and pushed over the course of 1 contraction to a normal spontaneous vaginal delivery of a viable 8 lbs. 0 oz. baby boy with Apgars of 8 at 1 minute and 9 at 5 minutes delivered in the direct occiput anterior position. There was a nuchal cord times 2 which was reduced following delivery of the . The placenta delivered spontaneously, intact, and was grossly normal with a grossly normal marginally and velamentously inserted three-vessel cord. There were no lacerations of the perineum, vagina, or cervix. Estimated blood loss for the case is approximately 100 mL. There were no complications. All sponge, instrument, and needle counts were correct. Both mother and infant are resting comfortably in recovery.
[2023-09-15] MEDS: IBUPROFEN 600 MG TAB PO PRN (20:13)
[2023-09-15] MEDS: SENNOSIDES-DOCUSATE SODIUM 1 EACH TAB PO SCH (20:13)
[2023-09-16] MEDS: LACTATED RINGERS 1,000 ML IV SCH ×2 (02:00→10:12)
[2023-09-16] MEDS: IBUPROFEN 600 MG TAB PO PRN ×2 (03:29→12:36)
[2023-09-16 03:33] VITALS: RESP 18
[2023-09-16 07:28] LABS: Basophils % (A) 0 %; Eosinophils # (A) 0.4 k/uL (0-0.7); Eosinophils % (A) 4 %; HCT 32.5 % (34.0-46.0); Lymphocytes # (A) 2.4 k/uL (1.0-4.8); Lymphocytes % (A) 23 %; MCH 32.5 pg (25.0-35.0); MCHC 33.9 g/dL (31.0-37.0); MCV 96.1 fL (80.0-100.0); Monocytes # (A) 0.5 k/uL (0-1.0); Monocytes % (A) 5 %; Neutrophils # (A) 6.8 k/uL (1.3-7.7); Neutrophils % (A) 66 %; Platelet Count 135 k/uL (150-450); RBC 3.39 m/uL (3.80-5.40); RDW 13.6 % (11.5-15.5); WBC 10.2 k/uL (3.8-10.6)
[2023-09-16] MEDS: SENNOSIDES-DOCUSATE SODIUM 1 EACH TAB PO SCH (10:11)
[2023-09-16 10:33] VITALS: BP 118/76; PULSE 88; TEMP 97.5
== END 2023-09-16 15:10 | disposition home or self-care (01) | DRG 807 ==
LOC: 4FBP 05:55
PROVIDERS: ADMIT Obstetrics & Gynecology; ATTEND Obstetrics & Gynecology
PROC: 10E0XZZ Delivery of Products of Conception, External Approach (ICD-10-PCS; principal; 2023-09-15)
PROC: 3E033VJ Introduction of Other Hormone into Peripheral Vein, Percutaneous Approach (ICD-10-PCS; principal; 2023-09-15)
PROC: 10907ZC Drainage of Amniotic Fluid, Therapeutic from Products of Conception, Via Natural or Artificial Opening (ICD-10-PCS; principal; 2023-09-15)
DX: O69.81X0 Labor and delivery complicated by cord around neck, without compression, not applicable or unspecified (principal); O99.214 Obesity complicating childbirth; E66.8 Other obesity; Z79.82 Long term (current) use of aspirin; Z28.310 Unvaccinated for COVID-19; Z3A.39 39 weeks gestation of pregnancy; Z37.0 Single live birth
CPT/HCPCS: 85025; 86850; 86900; 86901

== ENCOUNTER → 2023-10-26 | Outpatient (CLI) | payer OTHER ==
[2023-10-26 15:40] LABS: Basophils # (A) 0.05 X 10*3/uL (0.00-0.10); Basophils % (A) 0.6 %; Eosinophils # (A) 0.55 X 10*3/uL (0.04-0.35); Eosinophils % (A) 6.5 %; HCT 41.2 % (37.2-46.3); HGB 13.6 g/dL (12.0-15.0); Lymphocytes # (A) 2.81 X 10*3/uL (0.90-5.00); MCH 30.8 pg (27.0-32.0); MCV 93.2 FL (80.0-97.0); Mean Platelet Volume 9.3 FL (9.5-12.2); Monocytes # (A) 0.48 X 10*3/uL (0.20-1.00); Monocytes % (A) 5.6 %; NRBC Per 100 WBC 0 X 10*3/uL (0.00-0.01); Neutrophils % (A) 54.1 %; Platelet Count 228 X 10*3/uL (140-440); RBC 4.42 X 10*6/uL (4.10-5.20); RDW 11.8 % (11.5-14.5); WBC 8.51 X 10*3/uL (4.50-10.00)
== END | disposition home or self-care (01) ==
LOC: LABPAT 09:16
PROVIDERS: ATTEND Obstetrics & Gynecology
DX: Z30.2 Encounter for sterilization (principal)
CPT/HCPCS: 36415; 85025

== ENCOUNTER 2023-11-04 08:18 | Day surgery (SDC) | payer OTHER ==
[2023-10-28 09:35] VITALS: BMI 40.3
[~2023-11-04 08:18] MED LIST: DEXAMETHASONE SOD PHOSPHATE 4 MG/ML 1 ML VIAL IV ONE; HYDROmorphone 0.5 MG/0.5 ML SYRINGE IVP PRN; LACTATED RINGERS 1,000 ML IV SCH; LIDOCAINE 1% (10MG/ML) FOR IV START INTRADERMA PRN; MIDAZOLAM 2 MG/2 ML VIAL IV PRN; ONDANSETRON 4 MG/2 ML VIAL IVP ONE; Pre Op ABX Message 1 EACH MISC MISCELLANE ONE
[2023-11-04] MEDS ORDERED: MIDAZOLAM 2 MG/2 ML VIAL ONE (10:04)
[2023-11-04] MEDS ORDERED: fentaNYL (PF) 50 MCG/ML 2 ML AMP ONE (10:04)
[2023-11-04] MEDS ORDERED: SUCCINYLCHOLINE CHLORIDE 200 MG/10 ML VIAL IV ONE (10:04)
[2023-11-04] MEDS ORDERED: KETOROLAC 15 MG/ML 1 ML VIAL ONE (10:04)
[2023-11-04] MEDS ORDERED: PROPOFOL 10 MG/ML 20 ML VIAL IV ONE (10:04)
[2023-11-04] MEDS ORDERED: BUPIVACAINE (PF) 0.5% 30 ML VIAL SQ ONE ×2 (10:25→10:49)
[2023-11-04] MEDS ORDERED: SIMETHICONE 80 MG CHEWABLE PO PRN (11:06)
[2023-11-04] MEDS ORDERED: KETOROLAC 15 MG/ML 1 ML VIAL IVP PRN (11:06)
[2023-11-04] MEDS ORDERED: diphenhydrAMINE 50 MG/ML 1 ML VIAL IVP PRN (11:06)
[2023-11-04] MEDS ORDERED: ONDANSETRON 4 MG/2 ML VIAL IVP PRN (11:06)
[2023-11-04] MEDS ORDERED: Acetaminophen-Codeine 300-30mg TAB PO PRN ×2 (11:06)
[2023-11-04] MEDS ORDERED: IBUPROFEN 600 MG TAB PO PRN (11:06)
[2023-11-04] MEDS ORDERED: METOCLOPRAMIDE 5 MG/ML 2 ML VIAL IVP PRN (11:06)
[2023-11-04 11:13] VITALS: TEMP 97.4
--- NOTE | 2023-11-04 11:13 | P.OP ---
Date of Procedure: 11/04/23 Preoperative Diagnosis: #1. Multiparity #2. Undesired fertility Postoperative Diagnosis: Same Procedure(s) Performed: #1. Laparoscopic bilateral salpingectomy Anesthesia: ARLEEN Surgeon: Ramses Hill Estimated Blood Loss (ml): 5 IV fluids (ml): 800 Urine output (ml): 200 Pathology: other (Bilateral fallopian tubes as one specimen) Condition: stable Disposition: PACU Operative Findings: Preoperative pelvic examination demonstrated a roughly 4-5 week retroverted mobile normal shaped uterus with normal adnexa bilaterally. Intraoperatively, the uterus, tubes, and ovaries were normal to inspection. There is a small amount of serosanguineous fluid in the cul-de-sac. There was no evidence of endometriosis or other pathology. Her appendix could not be identified. The small and large intestine appeared normal as did the liver and diaphragm. There was a moderate amount of adhesive disease in the midline of the upper abdomen from omentum to anterior abdominal wall likely from previous cholecystectomy. The bilateral fallopian tubes were removed onto the cornea and then removed from the abdomen through the secondary laparoscopic ports. Description of Procedure: The patient was prepped and draped in usual fashion after general endotracheal anesthesia was administered by the anesthesiologist. The bladder was drained of approximately 200 mL of clear [place] urine. A speculum was placed on the anterior lip of the cervix grasped with a single-tooth tenaculum allowing placement of an acorn cannula for manipulation. Attention was then turned to the abdomen where a roughly 5 mm incision was made in a vertical fold of the umbilicus allowing insertion of a 5 mm optical port under direct visualization without difficulty. The abdomen was then insufflated with carbon dioxide to create a pneumoperitoneum and Trendelenburg positioning was utilized to sweep the bowel from the pelvis. A site was selected in the left lower quadrant approximate 4-5 cm below the umbilicus and 10-12 cm lateral where a 5 incision was made in the transverse plane allowing insertion of a 5 mm optical port under direct visualization without difficulty. A similar in mirroring port was placed in the right lower quadrant. The blunt probe was utilized to sweep the bowel from the pelvis. A grasper was utilized to grasp the fimbriated end of the left fallopian tube and elevate it. The tube was then divided from the underlying ovary and mesosalpinx to the cornu of the uterus where the tube was transected using the LigaSure device. The tube was then grasped with the LigaSure device at the isthmic portion and removed without difficulty through the secondary port. A similar operation was carried out on the opposite side without difficulty and the tube again removed through the secondary port. Expiration of the abdomen demonstrated no other findings aside from the adhesive disease noted in the midline of the upper abdomen. The entire pneumoperitoneum was then evacuated through the 3 ports and the ports removed. The incisions were closed with interrupted subcuticular stitches of 4-0 Vicryl which were then infused with a total of 10 mL of half percent Marcaine without epinephrine, equally div ided between the 3 incisions. The incisions were covered with Steri-Strips followed by Band-Aids. Assessment a blood loss for the case was approximate 5 mL. There were no complications. All sponge, instrument, and needle counts were correct. The patient tolerated the procedure well and proceeded to the recovery room in stable condition.
[2023-11-04] MEDS ORDERED: LACTATED RINGERS 1,000 ML IV SCH (11:15)
[2023-11-04 14:09] VITALS: BP 108/69; PULSE 50; RESP 16
[2023-11-05] MEDS ORDERED: ACETAMINOPHEN TAB 325 MG TAB PO PRN (11:06)
== END 2023-11-04 13:50 | disposition home or self-care (01) ==
LOC: OR 08:18
PROVIDERS: ATTEND Obstetrics & Gynecology
DX: Z30.2 Encounter for sterilization (principal); K21.9 Gastro-esophageal reflux disease without esophagitis; Z64.1 Problems related to multiparity; Z79.899 Other long term (current) drug therapy
CPT/HCPCS: 81025; 58661; J2250; J0330; J1100; J2405; J3010; J1885; J2704; J0665; 88302